=== PATIENT | female | born 1990 | race Caucasian/White ===

== ENCOUNTER → 2021-03-11 07:54 | Outpatient (BNVA) | payer OTHER, SELFPAY | PROVIDERS: Referring Provider Surgery; Visit Provider Physician Assistant Surgical ==

== ENCOUNTER 2022-08-26 08:00 | Outpatient (AMB) | payer OTHER, SELFPAY ==
--- NOTE | 2022-08-26 08:07 | A.OFFVIS_ITS ---
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 Pt reports snoring, gasping, being tired and difficulty focusing. She states that she wakes up 4-5 times at night, feeling unrested with eye pain, and having AM headache. Pt reports that she gained about 90 lb over the last 2 years. She had a gastric sleeves done 2012. Sleep questionnaire: Have you ever been diagnosed with a sleep disorder? Yes, WEI in 2013. Have you ever had a sleep study in the past? Yes. Have you ever been treated for a sleep disorder? Yes. CPAP, but stopped using after gastric sleeve surgery. Do you take medications for a sleep disorder? No. Do you snore? Yes. Do you wake up gasping at night? Yes. Do you have episodes of apneas? Yes. If yes, are they witnessed? No. Do you have episodes of nocturnal chest pain or dyspnea? Yes. Do you have difficulty initiating sleep? No. Do you have difficulty maintaining sleep? Yes. Do you wake up tired? Yes. Do you have headaches upon awakening? Yes. Do you wake up with dry mouth or throat? No. Do you have GERD? Yes. Do you have nocturia? Yes. Do you have nocturnal leg cramps? Yes. Do you have symptoms of restless legs? Yes. Do you act out your dreams? Cry a lot. Sleep hygiene questionnaire: What is your usual sleep routine? Usual bedtime is at 10 pm; Usual wake up time is at 6-7 am. Do you take naps? No. Is your sleep environment cool, dark, and quiet? Yes. Do you exercise? No. Do you take caffeine or other stimulants? 1 cup of coffee in the morning, soda or refresher in the afternoon, but not often. Do you use electronics in bed? Yes. What is your work schedule? 8 am-4:30 pm. Hypersomnolence questionnaire: Do you have daytime tiredness or fatigue? Yes. Do you easily fall asleep when inactive? No. Have you ever had episodes of sudden weakness? No. Have you ever had episodes of sudden weakness associated with strong emotions? No. [facility] Surgical History (Updated 08/26/22 @ 08:13 by Yuliet Gomes CMA) H/O bariatric surgery History of 2 sections Family History (Updated 08/26/22 @ 08:14 by Yuliet Gomes CMA) Family/Other No problems noted. Social History (Updated 08/26/22 @ 08:14 by Yuliet Gomes CMA) Alcohol intake: never Patient Tobacco Use Status: Never used Tobacco Review of Systems Const All systems reviewed & are unremarkable except as noted in HPI and below ENT Reports Normal hearing present Neuro Reports Normal hearing present Physical Exam Vital Signs: Last Vital Signs Pulse 75 08/26/22 08:14 BP 115/58 L 08/26/22 08:14 Pulse Ox 98 08/26/22 08:14 Oxygen Delivery Method Room Air 08/26/22 08:14 BMI result Body Mass Index 55.1 Const General: cooperative Nutritional Appearance: obese Orientation/consciousness: patient oriented x3 Limitations: no limitations HEENT Throat: Yes other (mallampati grade 4) Neck Neck: Yes full ROM and Yes supple Resp Effort & Inspection: normal respiratory effort and able to speak in complete sentences Neuro General: patient oriented x3, gait normal, moves all extremities and no focal motor deficits Cranial nerves: Yes Bilaterally intact EOM present, Yes Normal facial strength present, Yes Midline tongue present, Yes Symmetric palate elevation present, Yes Normal hearing present, Yes Ability to bilaterally rotate head present and Yes Ability to bilaterally elevate shoulders present Cognition (Neuro): normal cognition Gait exam (Neuro): Normal gait present Motor exam (neuro): 5/5 motor strength present throughout, Pronator motor function not present and no tremor noted Psych Appearance: grossly normal Mental Status: mental status grossly normal Speech and movement: Normal speech and movement present Affect: normal affect Attitude: cooperative Assessment & Plan Assessment & Plan (1) Restless leg syndrome: Code(s): G25.81 - Restless legs syndrome (2) Daytime somnolence: Code(s): R40.0 - Somnolence (3) Snoring: Code(s): R06.83 - Snoring (4) Morbid obesity with BMI of 50.0-59.9, adult: Code(s): E66.01 - Morbid (severe) obesity due to excess calories; Z68.43 - Body mass index [BMI] 50.0-59.9, adult Plan Pt is advised to undergo in lab sleep study to assess for sleep apnea. Will f/u with pt after study to discuss results and appropriate treatment options. Sleep hygiene education provided. Limit caffeine intake in the afternoon and electronic use before bedtime. Wt reduction advised. Continue to take gabapentin 100 mg qHS, ferrous sulfate 324 mg daily with vitamin C for restless legs. Pt to call with any worsening concerns or questions. Orders: Orders RT PSG in-lab sleep study Today E66.01 - Morbid (severe) obesity due to excess calories, G25.81 - Restless legs syndrome, R06.83 - Snoring, R40.0 - Somnolence, Z68.43 - Body mass index [BMI] 50.0-59.9, adult, Z98.84 - Bariatric surgery status Coding Level of Care Code New Pt Level 4 ([id number]) Diagnoses Restless leg syndrome G25.81 Daytime somnolence R40.0 Snoring R06.83 Morbid obesity with BMI of 50.0-59.9, adult E66.01; Z68.43
[2022-08-26 08:14] VITALS: BP 115/58; PULSE 75; O2SAT 98; BMI 55.1
== END 2022-08-26 08:45 | disposition home or self-care (01) ==
PROVIDERS: PCP Nurse Practitioner; Visit Provider Nurse Practitioner Family
DX: G25.81 Restless legs syndrome (principal); R40.0 Somnolence; R06.83 Snoring; E66.01 Morbid (severe) obesity due to excess calories; Z68.43 Body mass index [BMI] 50.0-59.9, adult
CPT/HCPCS: 99204

== ENCOUNTER → 2022-08-26 08:00 | Outpatient (BNVA) | payer OTHER, SELFPAY | PROVIDERS: PCP Nurse Practitioner; Visit Provider Nurse Practitioner Family ==

== ENCOUNTER → 2022-09-09 21:37 | Outpatient (REF) | payer OTHER, SELFPAY | LOC: HO.SL 21:37 | PROVIDERS: PCP Nurse Practitioner; Visit Provider Nurse Practitioner Family | DX: G47.33 Obstructive sleep apnea (adult) (pediatric) (principal); G47.61 Periodic limb movement disorder; R40.0 Somnolence; R06.83 Snoring; G25.81 Restless legs syndrome | CPT/HCPCS: 95810 ==

== ENCOUNTER → 2022-09-09 21:39 | Outpatient (BNV) | payer OTHER, SELFPAY | PROVIDERS: PCP Nurse Practitioner; Visit Provider Psychiatry & Neurology Neurology | DX: G47.33 Obstructive sleep apnea (adult) (pediatric) (principal); G47.61 Periodic limb movement disorder | CPT/HCPCS: 95810 ==